=== PATIENT | male | born 1995 | race African-American/Black ===

== ENCOUNTER 2018-10-03 07:56 | Emergency (ER) | payer OTHER ==
[2018-10-03 08:03] VITALS: BP 136/79; PULSE 80; TEMP 98.4; BMI 27.9
[2018-10-03] MEDS ORDERED: ERYTHROMYCIN 0.5% OPHTHALMIC OINTMENT 3.5 GM TUBE OS ONE (08:36)
[2018-10-03] MEDS ORDERED: ERYTHROMYCIN 0.5% OPHTHALMIC OINTMENT 3.5 GM TUBE ONE (08:36)
[2018-10-03] MEDS ORDERED: DIPHTH,PERTUSS(ACELL),TET 0.5 ML DISP.SYRIN IM ONE ×2 (08:37→08:49)
--- NOTE | 2018-10-03 08:43 | PDOC ---
History of Present Illness - General Chief Complaint: Eye Problem Stated Complaint: Eye Problem Time Seen by Provider: 10/03/18 08:15 History Source: Patient Exam Limitations: No Limitations - History of Present Illness Initial Comments: 10/03/18 08:50 While at work yesterday at [employer], was opening boxes and slipped causing a piece of box to hit his left eye and incurred a corneal abrasion. States was painful yesterday, wash his eye out with water hoping it was just a foreign body, but woke up this morning with continued pain and photophobia. Dates vision is blurred but feels is within normal limits Timing/Duration: 24 hours Severity: mild, moderate Associated Symptoms: reports: denies symptoms Past History - Travel Traveled outside of the country in the last 30 days: No Close contact w/someone who was outside of country & ill: No - Past Medical History Allergies/Adverse Reactions: Allergies Allergy/AdvReac Type Severity Reaction Status Date / Time No Known Allergies Allergy Verified 10/03/18 08:03 COPD: No Other medical history: cerebral palsy - Suicide/Smoking/Psychosocial Hx Smoking History: Never smoked Information on smoking cessation initiated: No Hx Alcohol Use: No Drug/Substance Use Hx: No Review of Systems - Review of Systems Able to Perform ROS?: Yes Is the patient limited Occitan proficient: Yes Constitutional: Yes: Symptoms Reported, See HPI, Malaise. No: Chills, Fever HEENTM: Yes: Symptoms Reported, See HPI, Blurred Vision, Tearing Respiratory: Yes: See HPI. No: Symptoms reported, Cough All Other Systems: Reviewed and Negative *Physical Exam - Vital Signs Last Vital Signs Temp Pulse Resp BP Pulse Ox 98.4 F 80 18 136/79 99 10/03/18 08:01 10/03/18 08:01 10/03/18 08:01 10/03/18 08:01 10/03/18 08:01 - Physical Exam General Appearance: Yes: Nourished, Appropriately Dressed, Apparent Distress, Moderate Distress HEENT: positive: BRIAN, Normal ENT Inspection, TMs Normal, Pharynx Normal, Nasal Congestion, Rhinorrhea, Other (left eye injected, and tearing. Photophobic. With fluorescein staining revealing a 2 mm x 2 mm abrasion at 6:00 just below eye redness of left eye. No foreign body detected) Neck: positive: Supple. negative: Tender Respiratory/Chest: positive: Lungs Clear Gastrointestinal/Abdominal: positive: Normal Bowel Sounds, Soft. negative: Tender Musculoskeletal: positive: Normal Inspection Integumentary: positive: Normal Color, Dry, Warm, Pale Neurologic: positive: manager of pharmacy II-XII NML intact, Fully Oriented, Alert, Normal Mood/ Affect, Normal Response, Motor Strength 5/5 Moderate Sedation - Procedure Monitoring Vital Signs: Procedure Monitoring Vital Signs Temperature 98.4 F 10/03/18 08:01 Pulse Rate 80 10/03/18 08:01 Respiratory Rate 18 10/03/18 08:01 Blood Pressure 136/79 10/03/18 08:01 O2 Sat by Pulse Oximetry (%) 99 10/03/18 08:01 Medical Decision Making - Medical Decision Making 10/03/18 15:56 Corneal abrasion. Erythromycin ointment applied. Patient given ibuprofen for pain relief. And Dr. foley her with office called who will receive patient for evaluation at 10:30 this morning. Patient will be discharged without information and follow-up with her today. Tetanus/diphtheria/pertussis booster was updated *DC/Admit/Observation/Transfer Diagnosis at time of Disposition: Corneal abrasion, left Qualifiers: Encounter type: initial encounter Qualified Code(s): S05.02XA - Injury of conjunctiva and corneal abrasion without foreign body, left eye, initial encounter - Discharge Dispostion Disposition: HOME Condition at time of disposition: Stable Decision to Admit order: No - Referrals Referrals: ON STAFF,NOT [Primary Care Provider] - Marge Rowley MD [Staff Physician] - - Patient Instructions Printed Discharge Instructions: DI for Corneal Abrasion Additional Instructions: Rest, avoid rubbing eyes Wash hands, use eye drops as directed, wash hands after use May use eye lubricating drops as often as needed erythromycin ointment, one thin film 3 times a day for 5 days Tylenol or ibuprofen for pain relief Here tetanus/diphtheria/pertussis booster was updated today Avoid contact with others until redness and discharge is gone from eyes. Followup with ophthalmology in one to 2 days for thorough exam Return to emergency department for worsened pain, swelling, vision problems. - Post Discharge Activity Forms/Work/School Notes: Back to Work
[2018-10-03] MEDS ORDERED: IBUPROFEN 600 MG TABLET (FP) PO ONE ×2 (08:51→08:52)
== END 2018-10-03 08:59 | disposition home or self-care (01) ==
LOC: JERFT 07:56
PROC: 3E0234Z Introduction of Serum, Toxoid and Vaccine into Muscle, Percutaneous Approach (ICD-10-PCS; principal; 2018-10-03)
DX: S05.02XA Injury of conjunctiva and corneal abrasion without foreign body, left eye, initial encounter (principal); W22.8XXA Striking against or struck by other objects, initial encounter; Y93.89 Activity, other specified; Y92.512 Supermarket, store or market as the place of occurrence of the external cause; Y99.0 Civilian activity done for income or pay
CPT/HCPCS: 90471; 90715; 99281-25